=== PATIENT | female | born 1980 | race African-American/Black ===

== ENCOUNTER 2017-03-16 03:27 | Emergency (ER) | payer MEDICARE, MEDICAID ==
[~2017-03-16] VITALS: Ht 162.6 cm; Wt 100.0 kg
[~2017-03-16 03:27] MED LIST: ACET-2178; ASPI-785; BENA10TA3; CLOP75TA16; GABA-290; IBUP-779; INSASP; LOPRESSOR; LORA10CA; METF1000; NASOI; SIMV40TA2
[2017-03-16] MEDS ORDERED: KETOROLAC 60MG/2ML VIAL IM STA (03:47)
[2017-03-16 04:29] LABS: EOSINOPHILS % 1.1 % (0.0-5.0); HEMATOCRIT. 38.1 % (36.0-48.0); HEMOGLOBIN. 12.7 g/dL (12.0-16.0); LYMPHOCYTES % 21.2 % (20.0-50.0); MEAN CORPUSCULAR HEMOGLOBIN 27.4 pg (28.0-32.0); MEAN CORPUSCULAR VOLUME 82.2 fL (81.0-99.0); MEAN PLATELET VOLUME 9.2 fl (7.4-10.4); MONOCYTES % 6.3 % (2.0-8.0); NEUTROPHILS % 70.4 % (40.0-76.0); PLATELET 228 x1000/uL (130-400); RED BLOOD CELL COUNT 4.64 mill/uL (4.2-5.4); RED CELL DISTRIBUTION WIDTH 13.8 % (11.6-14.6)
[2017-03-16 04:29] LABS: CLARITY URINE CLOUDY (CLEAR); COLOR URINE YELLOW (YELLOW); GLUCOSE URINE 3+ (NEGATIVE); KETONES URINE NEGATIVE (NEGATIVE); LEUKOCYTE ESTERASE URINE 3+ (NEGATIVE); NITRITE URINE NEGATIVE (NEGATIVE); OCCULT BLOOD URINE 2+ (NEGATIVE); PH URINE 5.5 (4.5-8.0); PROTEIN URINE 3+ (NEGATIVE); SPECIFIC GRAVITY URINE 1.014 (1.005-1.030); UROBILINOGEN URINE 0.2 E.U./dL (0.2-1.0)
[2017-03-16 04:40] LABS: CARBON DIOXIDE 26 mEq/L (21-32); CHLORIDE 105 mEq/L (98-107)
[2017-03-16] MEDS ORDERED: BENAZEPRIL 20MG TABLET PO SCH (04:45)
[2017-03-16] MEDS ORDERED: SODIUM CHLORIDE 0.9% 1,000 ML IV ONE (05:23)
[2017-03-16] MEDS ORDERED: LORAZEPAM 1MG TABLET PO ONE (05:45)
[2017-03-16 05:48] LABS: ETHANOL BLOOD < 10 mg/dL
[2017-03-16] MEDS: BENAZEPRIL 20MG TABLET PO SCH ×2 (06:30→17:50)
[2017-03-16] MEDS: NITROFURANTOIN 100MG M/M CAPSULE PO SCH ×2 (07:06→22:09)
[2017-03-16 08:32] LABS: *AMPHETAMINES SCREEN URINE NEGATIVE (NEGATIVE); *BARBITURATES SCREEN URINE NEGATIVE (NEGATIVE); *BENZODIAZEPINES SCREEN URINE NEGATIVE (NEGATIVE); CANNABINOID URINE SCREEN NEGATIVE (NEGATIVE); METHADONE URINE SCREEN NEGATIVE (NEGATIVE); OPIATES URINE SCREEN NEGATIVE (NEGATIVE); PHENCYCLIDINE URINE SCREEN NEGATIVE (NEGATIVE)
[2017-03-16 08:45] LABS: *COCAINE SCREEN URINE PRESUMTIVE POSITIVE (NEGATIVE)
[2017-03-16] MEDS ORDERED: RISPERIDONE 1MG TABLET PO SCH (14:45)
[2017-03-16] MEDS ORDERED: METFORMIN HCL 500MG TABLET PO ONE (16:15)
[2017-03-17 02:23] VITALS: BP 140/79
== END 2017-03-17 02:45 ==
LOC: ER 03:43
DX: F14.10 Cocaine abuse, uncomplicated (principal); N39.0 Urinary tract infection, site not specified; R44.0 Auditory hallucinations; I25.2 Old myocardial infarction; I13.0 Hypertensive heart and chronic kidney disease with heart failure and stage 1 through stage 4 chronic kidney disease, or unspecified chronic kidney disease; E11.22 Type 2 diabetes mellitus with diabetic chronic kidney disease; N18.9 Chronic kidney disease, unspecified; I50.30 Unspecified diastolic (congestive) heart failure; Z88.6 Allergy status to analgesic agent; Z88.2 Allergy status to sulfonamides; Z79.82 Long term (current) use of aspirin; Z79.4 Long term (current) use of insulin; Z59.0 Homelessness
CPT/HCPCS: 36415; 80053; 80305; 80307; 80329; 81001; 81025; 85025; 96372; 99285; G0482; J1885; J7030

== ENCOUNTER 2019-12-09 14:43 | Inpatient (IN) | payer MEDICARE, MEDICAID ==
[~2019-12-09] VITALS: Ht 162.6 cm; Wt 88.0 kg
[~2019-12-09 14:43] MED LIST changes: -ACET-2178; -BENA10TA3; +BENA10TA74; -CLOP75TA16; +CLOP75TA4; +TOPUD
[2019-12-09 15:23] LABS: BASOPHILS % 0.8 % (0.0-2.0); EOSINOPHILS % 2.4 % (0.0-5.0); HEMATOCRIT. 33.4 % (36.0-48.0); HEMOGLOBIN. 11.4 g/dL (12.0-16.0); LYMPHOCYTES % 23.7 % (20.0-50.0); MEAN CORPUSCULAR HEMOGLOBIN 30.7 pg (28.0-32.0); MEAN CORPUSCULAR VOLUME 89.7 fL (81.0-99.0); MEAN PLATELET VOLUME 9.2 fl (7.4-10.4); MONOCYTES % 4.6 % (2.0-8.0); NEUTROPHILS % 68.5 % (40.0-76.0); PLATELET 190 x1000/uL (130-400); RED BLOOD CELL COUNT 3.72 mill/uL (4.2-5.4); RED CELL DISTRIBUTION WIDTH 14.9 % (11.6-14.6)
[2019-12-09 15:27] LABS: CHLORIDE 108 mEq/L (98-107)
[2019-12-09 15:33] LABS: BG BASE EXCESS -7.4 mmol/L (-2.0-2.0); BG CARBOXYHEMOGLOBIN 2.7 % (0.5-1.5); BG DEOXYHEMOGLOBIN 27.7 % (0.0-5.0); BG FRACTION INSPIRED OXYGEN 21; BG HCO3 ACT 17.6 mmol/L (22.0-26.0); BG METHEMOGLOBIN 0.1 % (0.0-1.5); BG OXYGEN SATURATION 71.5 % (92.0-98.5); BG OXYHEMOGLOBIN 69.5 % (94.0-97.0); BG PH 7.333 (7.350-7.450); BG PO2 37.6 mmHg (75.0-100.0); BG SAMPLE SITE RIGHT RADIAL; BG TOTAL HEMOGLOBIN 11.4 g/dL (12.0-18.0); BG VENT MODE ROOM AIR
[2019-12-09 15:33] LABS: HCG SCREEN NEGATIVE; PARTIAL THROMBOPLASTIN TIME < 21.0 sec (23.4-31.0); PROTHROMBIN TIME 10.2 sec (9.6-11.0)
[2019-12-09] MEDS ORDERED: SODIUM BICARBONATE 8.4% 1 MEQ/ML 50ML SYR IV ONE (15:45)
[2019-12-10 01:15] VITALS: BP 168/89
[2019-12-10] MEDS ORDERED: DEXTROSE 50% WATER 50ML SYRINGE IV PRN (03:00)
[2019-12-10] MEDS ORDERED: LISI-186 PO (03:27)
[2019-12-10] MEDS ORDERED: AMI2 PO (03:27)
[2019-12-10] MEDS ORDERED: AMLO5TAB4 PO (03:27)
[2019-12-10] MEDS ORDERED: ATOR80TA PO (03:27)
[2019-12-10] MEDS ORDERED: CLOP75TA4 PO (03:27)
[2019-12-10] MEDS ORDERED: COR25 PO (03:27)
[2019-12-10] MEDS ORDERED: SERT25TA PO (03:27)
[2019-12-10] MEDS ORDERED: ISOS120T9 PO (03:27)
[2019-12-10] MEDS ORDERED: INSU100I28 SQ (03:27)
[2019-12-10] MEDS ORDERED: ASPI-1497 PO (03:27)
[2019-12-10 04:00] VITALS: BP 138/69
[2019-12-10] MEDS: BLOOD SUGAR DIAGNOSTIC STRIP TEST SCH ×4 (05:44→20:43)
[2019-12-10] MEDS: INSULIN LISPRO 100 UNITS/ML SUBCUT SCH ×4 (05:50→20:43)
[2019-12-10 06:02] LABS: CHLORIDE 110 mEq/L (98-107)
[2019-12-10 06:04] LABS: HEMATOCRIT 31.1 % (36.0-48.0); HEMOGLOBIN 10.4 g/dL (12.0-16.0); MEAN CORPUSCULAR HEMOGLOBIN 29.7 pg (28.0-32.0); MEAN CORPUSCULAR VOLUME 88.8 fL (81.0-99.0); PLATELET 180 x1000/uL (130-400); RED CELL DISTRIBUTION WIDTH 14.7 % (11.6-14.6)
[2019-12-10 06:10] LABS: LDL CHOLESTEROL 72 mg/dL (5-100)
[2019-12-10 06:11] LABS: HDL CHOLESTEROL 58 mg/dL (40-59)
[2019-12-10 06:54] LABS: FOLIC ACID (FOLATE) SERUM 7.9 ng/mL (>5.38)
[2019-12-10 08:00] VITALS: BP 167/71
[2019-12-10] MEDS: AMIODARONE HCL 200 MG TABLET PO SCH (08:54)
[2019-12-10] MEDS: ASPIRIN 81MG TABLET PO SCH (08:54)
[2019-12-10] MEDS: CARVEDILOL 12.5MG TABLET PO SCH ×2 (08:55→20:44)
[2019-12-10] MEDS: LISINOPRIL 5MG TABLET PO SCH (08:55)
[2019-12-10] MEDS: CLOPIDOGREL 75MG TABLET PO SCH (08:56)
[2019-12-10] MEDS: SERTRALINE HCL 25MG TABLET PO SCH (08:56)
[2019-12-10] MEDS: AMLODIPINE 5MG TABLET PO SCH (08:56)
[2019-12-10] MEDS: ISOSORBIDE MONONITRATE 60MG TABLET SR 24HR PO SCH (08:56)
[2019-12-10 12:00] VITALS: BP 145/87
[2019-12-10] MEDS ORDERED: HEPARIN 1000 UNITS/ML 10ML ONE (15:56)
[2019-12-10] MEDS ORDERED: LIDOCAINE HCL 1% 20ML VIAL (Pyxis) INJ ONE (15:56)
[2019-12-10] MEDS ORDERED: SODIUM BICARBONATE 4% (2.4MEQ) 5ML VIAL IV ONE (15:56)
[2019-12-10 20:00] VITALS: BP 126/58
[2019-12-10 22:26] VITALS: BP 131/74
[2019-12-10] MEDS: HYDROCODONE/ACETAMINOPHEN 5/325MG TABLET PO PRN (22:54)
[2019-12-11] VITALS: BP 129/65
[2019-12-11] MEDS: ATORVASTATIN CALCIUM 40MG TABLET PO SCH ×2 (00:28→20:46)
[2019-12-11 04:00] VITALS: BP 143/86
[2019-12-11] MEDS: BLOOD SUGAR DIAGNOSTIC STRIP TEST SCH ×4 (05:34→20:46)
[2019-12-11] MEDS: INSULIN LISPRO 100 UNITS/ML SUBCUT SCH ×4 (05:51→20:46)
[2019-12-11 08:00] VITALS: BP 123/76
[2019-12-11] MEDS: ASPIRIN 81MG TABLET PO SCH (08:18)
[2019-12-11] MEDS: HYDROCODONE/ACETAMINOPHEN 5/325MG TABLET PO PRN ×2 (08:18→18:44)
[2019-12-11 08:41] LABS: BASOPHILS % 0.6 % (0.0-2.0); EOSINOPHILS % 2.8 % (0.0-5.0); HEMATOCRIT. 34.9 % (36.0-48.0); HEMOGLOBIN. 11.8 g/dL (12.0-16.0); LYMPHOCYTES % 23.5 % (20.0-50.0); MEAN CORPUSCULAR VOLUME 88.8 fL (81.0-99.0); MEAN PLATELET VOLUME 9.5 fl (7.4-10.4); NEUTROPHILS % 68.1 % (40.0-76.0); PLATELET 199 x1000/uL (130-400); RED BLOOD CELL COUNT 3.93 mill/uL (4.2-5.4); RED CELL DISTRIBUTION WIDTH 14.7 % (11.6-14.6)
[2019-12-11] MEDS: AMIODARONE HCL 200 MG TABLET PO SCH (09:00)
[2019-12-11] MEDS: ISOSORBIDE MONONITRATE 60MG TABLET SR 24HR PO SCH (09:00)
[2019-12-11] MEDS: LISINOPRIL 5MG TABLET PO SCH (09:00)
[2019-12-11] MEDS: CLOPIDOGREL 75MG TABLET PO SCH (09:00)
[2019-12-11] MEDS: SERTRALINE HCL 25MG TABLET PO SCH (09:00)
[2019-12-11] MEDS: AMLODIPINE 5MG TABLET PO SCH (09:00)
[2019-12-11] MEDS: CARVEDILOL 12.5MG TABLET PO SCH ×2 (09:00→20:45)
[2019-12-11 09:50] LABS: PHOSPHORUS 3.6 mg/dL (2.5-4.9)
[2019-12-11 12:00] VITALS: BP 126/70
[2019-12-11 12:43] LABS: HEPATITIS B SURFACE AB 443.5 mIU/mL
[2019-12-11 12:54] LABS: HEPATITIS B SURFACE ANTIGEN NEGATIVE
[2019-12-11 16:00] VITALS: BP 133/67
[2019-12-11 20:00] VITALS: BP 120/71
[2019-12-12] VITALS: BP 162/57
[2019-12-12 04:00] VITALS: BP 129/72
[2019-12-12] MEDS: INSULIN LISPRO 100 UNITS/ML SUBCUT SCH ×4 (06:40→21:00)
[2019-12-12] MEDS: BLOOD SUGAR DIAGNOSTIC STRIP TEST SCH ×4 (06:40→21:25)
[2019-12-12 08:40] LABS: BASOPHILS % 0.7 % (0.0-2.0); EOSINOPHILS % 6.9 % (0.0-5.0); HEMATOCRIT. 35.8 % (36.0-48.0); HEMOGLOBIN. 12.1 g/dL (12.0-16.0); LYMPHOCYTES % 29.1 % (20.0-50.0); MEAN CORPUSCULAR HEMOGLOBIN 29.7 pg (28.0-32.0); MEAN CORPUSCULAR VOLUME 88.2 fL (81.0-99.0); MEAN PLATELET VOLUME 9.4 fl (7.4-10.4); MONOCYTES % 7.1 % (2.0-8.0); NEUTROPHILS % 56.2 % (40.0-76.0); PLATELET 186 x1000/uL (130-400); RED BLOOD CELL COUNT 4.06 mill/uL (4.2-5.4); RED CELL DISTRIBUTION WIDTH 14.6 % (11.6-14.6)
[2019-12-12] MEDS: CARVEDILOL 12.5MG TABLET PO SCH ×2 (09:00→21:00)
[2019-12-12] MEDS: CLOPIDOGREL 75MG TABLET PO SCH (09:00)
[2019-12-12] MEDS: LISINOPRIL 5MG TABLET PO SCH (09:00)
[2019-12-12] MEDS: AMLODIPINE 5MG TABLET PO SCH (09:00)
[2019-12-12] MEDS: ISOSORBIDE MONONITRATE 60MG TABLET SR 24HR PO SCH (09:24)
[2019-12-12] MEDS: SERTRALINE HCL 25MG TABLET PO SCH (09:25)
[2019-12-12] MEDS: AMIODARONE HCL 200 MG TABLET PO SCH (09:26)
[2019-12-12 12:00] VITALS: BP 120/68
[2019-12-12 13:50] LABS: PHOSPHORUS 4.2 mg/dL (2.5-4.9)
[2019-12-12 16:00] VITALS: BP 120/69
[2019-12-12 20:00] VITALS: BP 127/63
[2019-12-12] MEDS: ATORVASTATIN CALCIUM 40MG TABLET PO SCH (21:41)
[2019-12-13] VITALS (17 sets, daily range): BP systolic 101–177; BP diastolic 59–101
[2019-12-13 06:27] LABS: BASOPHILS % 0.9 % (0.0-2.0); EOSINOPHILS % 6.5 % (0.0-5.0); HEMATOCRIT. 36.6 % (36.0-48.0); HEMOGLOBIN. 12.3 g/dL (12.0-16.0); LYMPHOCYTES % 27.8 % (20.0-50.0); MEAN CORPUSCULAR HEMOGLOBIN 29.6 pg (28.0-32.0); MEAN PLATELET VOLUME 9.6 fl (7.4-10.4); NEUTROPHILS % 57.8 % (40.0-76.0); PLATELET 200 x1000/uL (130-400); RED BLOOD CELL COUNT 4.16 mill/uL (4.2-5.4); RED CELL DISTRIBUTION WIDTH 14.4 % (11.6-14.6)
[2019-12-13 06:28] LABS: PROTHROMBIN TIME 10.9 sec (9.6-11.0)
[2019-12-13] MEDS: BLOOD SUGAR DIAGNOSTIC STRIP TEST SCH ×4 (07:10→21:09)
[2019-12-13 07:13] LABS: PHOSPHORUS 2.5 mg/dL (2.5-4.9)
[2019-12-13] MEDS ORDERED: HEPARIN 1000 UNITS/ML 10ML ONE (07:23)
[2019-12-13] MEDS ORDERED: SODIUM BICARBONATE 4% (2.4MEQ) 5ML VIAL IV ONE (07:23)
[2019-12-13] MEDS ORDERED: LIDOCAINE HCL 1% 20ML VIAL (Pyxis) INJ ONE (07:24)
[2019-12-13] MEDS: INSULIN LISPRO 100 UNITS/ML SUBCUT SCH ×4 (07:40→21:16)
[2019-12-13] MEDS ORDERED: CEFAZOLIN 1000MG PREMIX 50 ML IV ONE (07:41)
[2019-12-13] MEDS ORDERED: FENTANYL CITRATE/PF 50MCG/ML 2ML VIAL ONE (07:41)
[2019-12-13] MEDS ORDERED: FENTANYL CITRATE/PF 50MCG/ML 2ML VIAL IV ONE (08:45)
[2019-12-13] MEDS: AMLODIPINE 5MG TABLET PO SCH (09:00)
[2019-12-13] MEDS ORDERED: FENTANYL CITRATE/PF 50MCG/ML 2ML VIAL IV SCH (09:30)
[2019-12-13] MEDS: CLOPIDOGREL 75MG TABLET PO SCH (10:58)
[2019-12-13] MEDS: SERTRALINE HCL 25MG TABLET PO SCH (10:58)
[2019-12-13] MEDS: LISINOPRIL 20MG TABLET PO SCH (10:58)
[2019-12-13] MEDS: ISOSORBIDE MONONITRATE 60MG TABLET SR 24HR PO SCH (10:58)
[2019-12-13] MEDS: AMIODARONE HCL 200 MG TABLET PO SCH (10:58)
[2019-12-13] MEDS: ASPIRIN 81MG TABLET PO SCH (10:59)
[2019-12-13] MEDS: CARVEDILOL 12.5MG TABLET PO SCH ×2 (10:59→21:00)
[2019-12-13] MEDS ORDERED: CEFAZOLIN 1000MG PREMIX 50 ML IV SCH (11:00)
[2019-12-13] MEDS: HYDROCODONE/ACETAMINOPHEN 5/325MG TABLET PO PRN ×2 (14:45→18:38)
[2019-12-13] MEDS: ATORVASTATIN CALCIUM 40MG TABLET PO SCH (21:15)
[2019-12-14] MEDS: HYDROCODONE/ACETAMINOPHEN 5/325MG TABLET PO PRN (00:08)
[2019-12-14 00:45] VITALS: BP 111/63
[2019-12-14 04:00] VITALS: BP 104/55
[2019-12-14] MEDS: BLOOD SUGAR DIAGNOSTIC STRIP TEST SCH ×2 (07:10→12:10)
[2019-12-14] MEDS: INSULIN LISPRO 100 UNITS/ML SUBCUT SCH ×2 (07:40→12:40)
[2019-12-14 08:00] VITALS: BP 136/80
[2019-12-14] MEDS: ASPIRIN 81MG TABLET PO SCH (08:50)
[2019-12-14] MEDS: ISOSORBIDE MONONITRATE 60MG TABLET SR 24HR PO SCH (08:50)
[2019-12-14] MEDS: CLOPIDOGREL 75MG TABLET PO SCH (08:50)
[2019-12-14] MEDS: AMIODARONE HCL 200 MG TABLET PO SCH (08:50)
[2019-12-14] MEDS: CARVEDILOL 12.5MG TABLET PO SCH (08:52)
[2019-12-14] MEDS: AMLODIPINE 5MG TABLET PO SCH (09:00)
[2019-12-14] MEDS: LISINOPRIL 20MG TABLET PO SCH (09:00)
[2019-12-14] MEDS: SERTRALINE HCL 25MG TABLET PO SCH (09:16)
[2019-12-14] MEDS ORDERED: LISI-604 PO (11:11)
[2019-12-14 12:00] VITALS: BP 97/57
[2019-12-14 15:11] VITALS: BP 100/84
== END 2019-12-14 16:00 | disposition home or self-care (01) | DRG 673 ==
LOC: ER 14:43 → MICUSO 15:52 → EDBEDREQ 22:27 → 8WST 23:26
PROVIDERS: ADMIT Internal Medicine; ATTEND Internal Medicine
PROC: 5A1D70Z Performance of Urinary Filtration, Intermittent, Less than 6 Hours Per Day (ICD-10-PCS; 2019-12-10)
PROC: 5A1D70Z Performance of Urinary Filtration, Intermittent, Less than 6 Hours Per Day (ICD-10-PCS; 2019-12-11)
PROC: 0JH63XZ Insertion of Tunneled Vascular Access Device into Chest Subcutaneous Tissue and Fascia, Percutaneous Approach (ICD-10-PCS; principal; 2019-12-13)
PROC: 02PA33Z Removal of Infusion Device from Heart, Percutaneous Approach (ICD-10-PCS; 2019-12-13)
PROC: 02HV33Z Insertion of Infusion Device into Superior Vena Cava, Percutaneous Approach (ICD-10-PCS; 2019-12-13)
PROC: B5181ZA Fluoroscopy of Superior Vena Cava using Low Osmolar Contrast, Guidance (ICD-10-PCS; 2019-12-13)
PROC: B548ZZA Ultrasonography of Superior Vena Cava, Guidance (ICD-10-PCS; 2019-12-13)
PROC: 5A1D70Z Performance of Urinary Filtration, Intermittent, Less than 6 Hours Per Day (ICD-10-PCS; 2019-12-14)
DX: N17.9 Acute kidney failure, unspecified (principal); I50.23 Acute on chronic systolic (congestive) heart failure; J96.01 Acute respiratory failure with hypoxia; I13.2 Hypertensive heart and chronic kidney disease with heart failure and with stage 5 chronic kidney disease, or end stage renal disease; N18.5 Chronic kidney disease, stage 5; E78.5 Hyperlipidemia, unspecified; I25.10 Atherosclerotic heart disease of native coronary artery without angina pectoris; I25.5 Ischemic cardiomyopathy; F14.11 Cocaine abuse, in remission; E10.22 Type 1 diabetes mellitus with diabetic chronic kidney disease; D64.9 Anemia, unspecified; Z20.828 Contact with and (suspected) exposure to other viral communicable diseases; Z79.02 Long term (current) use of antithrombotics/antiplatelets; Z79.4 Long term (current) use of insulin; Z79.82 Long term (current) use of aspirin; Z82.49 Family history of ischemic heart disease and other diseases of the circulatory system; Z83.3 Family history of diabetes mellitus; Z86.73 Personal history of transient ischemic attack (TIA), and cerebral infarction without residual deficits; Z95.1 Presence of aortocoronary bypass graft; Z88.5 Allergy status to narcotic agent; Z88.2 Allergy status to sulfonamides; I25.2 Old myocardial infarction; Z90.89 Acquired absence of other organs; Z79.899 Other long term (current) drug therapy; I73.9 Peripheral vascular disease, unspecified
CPT/HCPCS: 36415; 36558; 36589; 36600; 71045; 76937; 77001; 80048; 80053; 80061; 82375; 82746; 82805; 82962; 83036; 83735; 84100; 84484; 84703; 85025; 85027; 86705; 86706; 86803; 87340; 87635; 93005; 93923; 99152; 99153; 99285; C1750; C1752; C1769; J0690; J1642; J1644; J1815; J3010; J3490; G0500

== ENCOUNTER 2021-05-13 12:18 | Emergency (ER) | payer MEDICARE, MEDICAID ==
[~2021-05-13] VITALS: Ht 160 cm; Wt 71.0 kg
[~2021-05-13 12:18] MED LIST changes: +ASPI-1497 PO; -ASPI-785; +ATOR80TA PO; -BENA10TA74; +CLOP-31 PO; -CLOP75TA4; -GABA-290; -IBUP-779; -INSASP; -LOPRESSOR; -LORA10CA; -METF1000; -NASOI; +NITR0.4T49 SL; +SACU1TAB7 MT; -SIMV40TA2; -TOPUD
[2021-05-13 13:56] LABS: BASOPHILS % 0.5 % (0.0-2.0); EOSINOPHILS % 2.6 % (0.0-5.0); HEMATOCRIT. 35.1 % (36.0-48.0); HEMOGLOBIN. 11.8 g/dL (12.0-16.0); MEAN CORPUSCULAR HEMOGLOBIN 28.6 pg (28.0-32.0); MEAN CORPUSCULAR VOLUME 85.1 fL (81.0-99.0); MEAN PLATELET VOLUME 9.5 fl (7.4-10.4); NEUTROPHILS % 76.9 % (40.0-76.0); PLATELET 199 x1000/uL (130-400); RED BLOOD CELL COUNT 4.12 mill/uL (4.2-5.4); RED CELL DISTRIBUTION WIDTH 14.7 % (11.6-14.6)
[2021-05-13 14:10] LABS: CHLORIDE 99 mEq/L (98-107)
[2021-05-13 15:40] VITALS: BP 108/61
[2021-05-13] MEDS ORDERED: SODIUM CHLORIDE 0.9% 1,000 ML IV ONE (16:00)
== END 2021-05-13 15:56 | disposition home or self-care (01) ==
LOC: ER 13:38
DX: B34.9 Viral infection, unspecified (principal); M79.18 Myalgia, other site; I50.9 Heart failure, unspecified; Z98.890 Other specified postprocedural states; Z88.5 Allergy status to narcotic agent; Z79.899 Other long term (current) drug therapy; Z20.822 Contact with and (suspected) exposure to COVID-19
CPT/HCPCS: 36415; 71045; 80053; 83880; 85025; 87426; 93005; 99285

== ENCOUNTER 2021-07-20 15:37 | Inpatient (IN) | payer MEDICARE, MEDICAID ==
[~2021-07-20] VITALS: Ht 152.4 cm; Wt 72.6 kg
[2021-07-20] MEDS ORDERED: ONDANSETRON HCL 4MG/2ML INJ IV STA (18:07)
[2021-07-20] MEDS ORDERED: MORPHINE SULFATE 4 MG/ML CPJ (NOT FOR IM USE) IV STA (18:07)
[2021-07-20] MEDS ORDERED: GUAIFENESIN 200MG/10ML SUGAR FREE UDC PO PRN (20:15)
[2021-07-20] MEDS ORDERED: ACETAMINOPHEN 325MG TABLET PO PRN (20:15)
[2021-07-20] MEDS ORDERED: ONDANSETRON HCL 4MG/2ML INJ IV PRN (20:15)
[2021-07-20] MEDS ORDERED: CLONIDINE 0.1MG TABLET PO PRN (20:15)
[2021-07-20] MEDS ORDERED: HYDRALAZINE 20MG/ML VIAL IV PRN (20:15)
[2021-07-20] MEDS ORDERED: AMLODIPINE 10MG TABLET PO SCH (20:15)
[2021-07-20] MEDS ORDERED: IPRATROPIUM/ALBUTEROL 0.5-3(2.5)MG/3ML NEB HHN PRN (20:15)
[2021-07-20] MEDS ORDERED: METOPROLOL TARTRATE 50MG TABLET PO SCH (20:15)
[2021-07-20] MEDS ORDERED: DOCUSATE SODIUM 100MG CAPSULE PO PRN (20:15)
[2021-07-20] MEDS: HYDRALAZINE HCL 50MG TABLET PO SCH (22:00)
[2021-07-21 01:43] LABS: HEMATOCRIT. 28.1 % (36.0-48.0); HEMOGLOBIN. 9.4 g/dL (12.0-16.0); MEAN CORPUSCULAR HEMOGLOBIN 31.6 pg (28.0-32.0); MEAN CORPUSCULAR VOLUME 94.1 fL (81.0-99.0); MEAN PLATELET VOLUME 8.7 fl (7.4-10.4); PLATELET 193 x1000/uL (130-400); RED BLOOD CELL COUNT 2.99 mill/uL (4.2-5.4)
[2021-07-21 01:49] LABS: CHLORIDE 109 mEq/L (98-107)
[2021-07-21 01:53] LABS: ETHANOL BLOOD < 10 mg/dL
[2021-07-21 02:09] LABS: HEPATITIS B SURFACE AB 270.3 mIU/mL
[2021-07-21 02:20] LABS: HEPATITIS B SURFACE ANTIGEN NEGATIVE
[2021-07-21 02:52] VITALS: BP 155/84
[2021-07-21 03:51] LABS: PLATELET ESTIMATE NORMAL
[2021-07-21] MEDS ORDERED: GLIP5TAB12 PO (03:59)
[2021-07-21] MEDS ORDERED: COR3 MT (03:59)
[2021-07-21 04:00] VITALS: BP 164/92
[2021-07-21] MEDS ORDERED: RANO500T3 MT (04:00)
[2021-07-21] MEDS: HYDRALAZINE HCL 50MG TABLET PO SCH (05:22)
[2021-07-22] MEDS ORDERED: ISOS5TAB4 MT (05:36)
== END 2021-07-21 08:40 | disposition left against medical advice (07) | DRG 698 ==
LOC: ER 15:37 → 6WST 19:23 → ENRESERV 21:39
PROVIDERS: ADMIT Internal Medicine; ATTEND Internal Medicine
PROC: 5A1D70Z Performance of Urinary Filtration, Intermittent, Less than 6 Hours Per Day (ICD-10-PCS; principal; 2021-07-21)
DX: T82.41XA Breakdown (mechanical) of vascular dialysis catheter, initial encounter (principal); N18.6 End stage renal disease; I13.2 Hypertensive heart and chronic kidney disease with heart failure and with stage 5 chronic kidney disease, or end stage renal disease; I25.10 Atherosclerotic heart disease of native coronary artery without angina pectoris; Y83.8 Other surgical procedures as the cause of abnormal reaction of the patient, or of later complication, without mention of misadventure at the time of the procedure; E78.5 Hyperlipidemia, unspecified; E11.22 Type 2 diabetes mellitus with diabetic chronic kidney disease; D64.9 Anemia, unspecified; I50.9 Heart failure, unspecified; Z53.29 Procedure and treatment not carried out because of patient's decision for other reasons; Z99.2 Dependence on renal dialysis; Z88.4 Allergy status to anesthetic agent; Z88.8 Allergy status to other drugs, medicaments and biological substances; Z79.899 Other long term (current) drug therapy; Z95.1 Presence of aortocoronary bypass graft; Z87.891 Personal history of nicotine dependence; Y92.89 Other specified places as the place of occurrence of the external cause; Z79.02 Long term (current) use of antithrombotics/antiplatelets; Z79.84 Long term (current) use of oral hypoglycemic drugs; Z91.15 Patient's noncompliance with renal dialysis; F10.21 Alcohol dependence, in remission
CPT/HCPCS: 36415; 71045; 80053; 80320; 83880; 84484; 85025; 86706; 86850; 86900; 87340; 93005; 99285; J2270; J2405; G0480

== ENCOUNTER 2021-07-21 09:22 | Inpatient (IN) | payer MEDICARE, MEDICAID ==
[~2021-07-21] VITALS: Ht 165.1 cm; Wt 73.9 kg
[~2021-07-21 09:22] MED LIST changes: +COR3 MT; +GLIP5TAB12 PO; +RANO500T3 MT
[2021-07-21] MEDS ORDERED: VANCOMYCIN 1GM PMX (XELLIA) 200 ML IV ONE (13:30)
[2021-07-21] MEDS ORDERED: VANCOMYCIN 1G PREMIX 200 ML IV SCH (13:30)
[2021-07-21] MEDS ORDERED: CEFTRIAXONE 1 G PREMIX 50 ML IV ONE (13:30)
[2021-07-21 14:57] LABS: EOSINOPHILS % 4.9 % (0.0-5.0); HEMATOCRIT. 29.2 % (36.0-48.0); HEMOGLOBIN. 9.9 g/dL (12.0-16.0); LYMPHOCYTES % 26.1 % (20.0-50.0); MEAN CORPUSCULAR HEMOGLOBIN 31.2 pg (28.0-32.0); MEAN PLATELET VOLUME 9.1 fl (7.4-10.4); PLATELET 197 x1000/uL (130-400); RED BLOOD CELL COUNT 3.17 mill/uL (4.2-5.4); RED CELL DISTRIBUTION WIDTH 14.8 % (11.6-14.6)
[2021-07-21 15:03] LABS: CHLORIDE 107 mEq/L (98-107)
[2021-07-21] MEDS ORDERED: HYDROCODONE/ACETAMINOPHEN 10/325MG TABLET PO ONE (15:15)
[2021-07-21 15:23] LABS: HCG SCREEN NEGATIVE
[2021-07-22] MEDS ORDERED: IPRATROPIUM/ALBUTEROL 0.5-3(2.5)MG/3ML NEB HHN PRN (00:30)
[2021-07-22] MEDS ORDERED: HYDROCODONE/ACETAMINOPHEN 5/325MG TABLET PO PRN (00:30)
[2021-07-22] MEDS ORDERED: NALOXONE HCL 0.4 MG/ML 1ML VIAL IV PRN (00:30)
[2021-07-22] MEDS ORDERED: ACETAMINOPHEN 325MG TABLET PO PRN ×2 (00:30→08:15)
[2021-07-22] MEDS ORDERED: DOCUSATE SODIUM 100MG CAPSULE PO PRN ×2 (00:30→08:15)
[2021-07-22] MEDS ORDERED: ONDANSETRON HCL 4MG/2ML INJ IV PRN ×2 (00:30→08:15)
[2021-07-22] MEDS ORDERED: GUAIFENESIN 200MG/10ML SUGAR FREE UDC PO PRN ×2 (00:30→08:15)
[2021-07-22 05:17] VITALS: BP 178/96
[2021-07-22] MEDS ORDERED: ISOS5TAB4 MT (05:36)
[2021-07-22 08:00] VITALS: BP 167/95
[2021-07-22] MEDS ORDERED: MAGNESIUM/ALUMINUM HYDROXIDE/SIMETHICONE 30ML UDC PO PRN (08:15)
[2021-07-22] MEDS ORDERED: NA PHOS,M-B/NA PHOS,DI-BA ENEMA 118ML PR PRN (08:15)
[2021-07-22] MEDS ORDERED: IPRATROPIUM/ALBUTEROL 0.5-3(2.5)MG/3ML NEB NEB PRN (08:15)
[2021-07-22] MEDS ORDERED: CLONIDINE 0.1MG TABLET PO PRN (08:15)
[2021-07-22] MEDS ORDERED: LORAZEPAM 2MG/ML CPJ IV PRN (08:15)
[2021-07-22] MEDS: MORPHINE SULFATE 2 MG/ML CPJ (NOT FOR IM USE) IV PRN ×2 (10:32→16:07)
[2021-07-22 12:00] VITALS: BP 165/83
[2021-07-22] MEDS ORDERED: VANCOMYCIN 500MG PREMIX 100 ML IV NR (12:00)
[2021-07-22] MEDS: NICOTINE 21MG PATCH TD SCH (14:24)
[2021-07-22] MEDS ORDERED: CEFTRIAXONE 1 G PREMIX 50 ML IV SCH (15:00)
[2021-07-22 16:00] VITALS: BP 157/100
[2021-07-22] MEDS: CEFTRIAXONE 1,000 MG in DEXTROSE 5% WATER 50 ML IV SCH (16:10)
[2021-07-22 20:00] VITALS: BP 158/88
[2021-07-22] MEDS ORDERED: VANCOMYCIN 1G PREMIX 200 ML IV SCH (20:15)
[2021-07-23] MEDS: MORPHINE SULFATE 2 MG/ML CPJ (NOT FOR IM USE) IV PRN ×4 (03:02→21:24)
[2021-07-23 04:00] VITALS: BP 157/88
[2021-07-23] MEDS ORDERED: DEXTROSE 50% WATER 50ML SYRINGE IV PRN (05:00)
[2021-07-23] MEDS: BLOOD SUGAR DIAGNOSTIC STRIP TEST SCH ×4 (05:57→21:12)
[2021-07-23] MEDS: INSULIN LISPRO 100 UNITS/ML SUBCUT SCH ×4 (05:57→21:43)
[2021-07-23 08:00] VITALS: BP 169/84
[2021-07-23] MEDS: NICOTINE 21MG PATCH TD SCH (09:00)
[2021-07-23 12:00] VITALS: BP 153/78
[2021-07-23] MEDS ORDERED: VANCOMYCIN 1,000 MG in DEXT 5% WATER 250 ML IV SCH (15:00)
[2021-07-23] MEDS: CEFTRIAXONE 1,000 MG in DEXTROSE 5% WATER 50 ML IV SCH (15:43)
[2021-07-23] MEDS: BACITRACIN 15GM TUBE TOP SCH (15:44)
[2021-07-23 16:00] VITALS: BP 160/80
[2021-07-23 20:00] VITALS: BP 165/86
[2021-07-23] MEDS: CLONIDINE 0.1MG TABLET PO PRN (21:14)
[2021-07-24 04:00] VITALS: BP 150/82
[2021-07-24] MEDS: DIPHENHYDRAMINE 50MG/ML VIAL IV PRN ×3 (06:11→21:44)
[2021-07-24] MEDS: INSULIN LISPRO 100 UNITS/ML SUBCUT SCH ×4 (07:12→22:03)
[2021-07-24] MEDS: BLOOD SUGAR DIAGNOSTIC STRIP TEST SCH ×4 (07:12→21:00)
[2021-07-24 08:00] VITALS: BP 161/79
[2021-07-24 09:17] LABS: HEMATOCRIT. 31.4 % (36.0-48.0); HEMOGLOBIN. 10.6 g/dL (12.0-16.0); LYMPHOCYTES % 31.5 % (20.0-50.0); MEAN CORPUSCULAR HEMOGLOBIN 31.1 pg (28.0-32.0); MEAN CORPUSCULAR VOLUME 92.5 fL (81.0-99.0); MEAN PLATELET VOLUME 9.4 fl (7.4-10.4); MONOCYTES % 8.8 % (2.0-8.0); NEUTROPHILS % 53.7 % (40.0-76.0); PLATELET 211 x1000/uL (130-400); RED BLOOD CELL COUNT 3.39 mill/uL (4.2-5.4); RED CELL DISTRIBUTION WIDTH 14.2 % (11.6-14.6)
[2021-07-24] MEDS: NICOTINE 21MG PATCH TD SCH (09:17)
[2021-07-24] MEDS: BACITRACIN 15GM TUBE TOP SCH (09:17)
[2021-07-24 09:34] LABS: CHLORIDE 107 mEq/L (98-107)
[2021-07-24 09:36] LABS: PARTIAL THROMBOPLASTIN TIME 27.4 sec (23.4-31.0); PROTHROMBIN TIME 10.4 sec (9.6-11.0)
[2021-07-24] MEDS ORDERED: HEPARIN 1000 UNITS/ML 10ML ONE (09:45)
[2021-07-24] MEDS ORDERED: LIDOCAINE HCL 1% 10 MG/ML 10ML VIAL ONE (09:45)
[2021-07-24] MEDS: MORPHINE SULFATE 2 MG/ML CPJ (NOT FOR IM USE) IV PRN ×2 (10:28→21:50)
[2021-07-24] MEDS: CLONIDINE 0.1MG TABLET PO PRN (10:28)
[2021-07-24 11:38] LABS: HEPATITIS B SURFACE AB 336.8 mIU/mL
[2021-07-24 11:49] LABS: HEPATITIS B SURFACE ANTIGEN NEGATIVE
[2021-07-24 12:00] VITALS: BP 144/77
[2021-07-24] MEDS ORDERED: CALCIUM GLUCONATE 1GM PREMIX 50 ML IV NR (12:30)
[2021-07-24] MEDS ORDERED: SODIUM POLYSTYRENE SULFONATE 15 G/60 ML BOT PO NR (13:00)
[2021-07-24] MEDS ORDERED: DEXTROSE 50% WATER 50ML SYRINGE IV NR (13:00)
[2021-07-24] MEDS ORDERED: SODIUM BICARBONATE 8.4% 1 MEQ/ML 50ML SYR IV NR (13:00)
[2021-07-24] MEDS ORDERED: INSULIN REGULAR (HUMULIN R) UD 100 UNITS/ML SYR IV NR (13:00)
[2021-07-24] MEDS ORDERED: VANCOMYCIN 750 MG in DEXT 5% WATER 250 ML IV SCH (14:00)
[2021-07-24 16:00] VITALS: BP 140/82
[2021-07-24 20:00] VITALS: BP 117/93
[2021-07-24] MEDS ORDERED: MORPHINE SULFATE 2 MG/ML CPJ (NOT FOR IM USE) IV ONE (21:36)
[2021-07-24] MEDS ORDERED: DIPHENHYDRAMINE 50MG/ML VIAL ONE (21:39)
[2021-07-24] MEDS: CEFTRIAXONE 1,000 MG in DEXTROSE 5% WATER 50 ML IV SCH (21:43)
[2021-07-24] MEDS ORDERED: INSULIN LISPRO 100 UNITS/ML SUBCUT ONE (22:00)
[2021-07-25] VITALS: BP 146/84
[2021-07-25 04:00] VITALS: BP 168/98
[2021-07-25] MEDS ORDERED: DIPHENHYDRAMINE 50MG/ML VIAL ONE (04:17)
[2021-07-25] MEDS: DIPHENHYDRAMINE 50MG/ML VIAL IV PRN ×2 (04:25→20:14)
[2021-07-25] MEDS ORDERED: BUPIVACAINE HCL/PF 0.5% (5MG/ML) 30ML ONE (06:26)
[2021-07-25] MEDS ORDERED: THROMBIN (BOVINE) 5000 UNITS/VIAL TOP ONE (06:27)
[2021-07-25] MEDS ORDERED: HEPARIN SODIUM 1,000 UNIT/1ML VIAL IV ONE (06:27)
[2021-07-25] MEDS ORDERED: BACITRACIN 15GM TUBE TOP ONE (06:27)
[2021-07-25] MEDS ORDERED: POLYMYXIN B SULFATE 500000 UNITS/VIAL ONE (06:28)
[2021-07-25] MEDS ORDERED: LIDOCAINE HCL 1% 10 MG/ML 10ML VIAL ONE (06:28)
[2021-07-25] MEDS: BLOOD SUGAR DIAGNOSTIC STRIP TEST SCH ×4 (06:54→21:00)
[2021-07-25] MEDS: INSULIN LISPRO 100 UNITS/ML SUBCUT SCH ×4 (06:54→20:27)
[2021-07-25] MEDS ORDERED: MORPHINE SULFATE 2 MG/ML CPJ (NOT FOR IM USE) IV ONE (07:59)
[2021-07-25 08:00] VITALS: BP 173/98
[2021-07-25] MEDS ORDERED: CLONIDINE 0.1MG TABLET ONE (08:01)
[2021-07-25] MEDS: MORPHINE SULFATE 2 MG/ML CPJ (NOT FOR IM USE) IV PRN ×3 (08:04→20:14)
[2021-07-25] MEDS: CLONIDINE 0.1MG TABLET PO PRN ×2 (08:05→15:31)
[2021-07-25] MEDS ORDERED: NICOTINE 21MG PATCH ONE (08:18)
[2021-07-25] MEDS: NICOTINE 21MG PATCH TD SCH (08:20)
[2021-07-25] MEDS: BACITRACIN 15GM TUBE TOP SCH (08:21)
[2021-07-25 12:00] VITALS: BP 155/60
[2021-07-25] MEDS ORDERED: PROPOFOL 10MG/ML 100ML 100 ML IV ONE (13:00)
[2021-07-25] MEDS ORDERED: PROPOFOL 200MG/20ML VIAL IV ONE (13:16)
[2021-07-25] MEDS ORDERED: MIDAZOLAM HCL 2 MG/2 ML VIAL ONE ×3 (13:16→13:54)
[2021-07-25] MEDS ORDERED: FENTANYL CITRATE/PF 50MCG/ML 2ML VIAL ONE ×3 (13:16→13:54)
[2021-07-25] MEDS ORDERED: ONDANSETRON HCL 4MG/2ML INJ ONE (13:18)
[2021-07-25] MEDS ORDERED: DEXAMETHASONE 4MG/ML 1ML VIAL ONE (13:18)
[2021-07-25] MEDS ORDERED: HYDROMORPHONE HCL/PF 2MG/ML CPJ IV PRN (14:00)
[2021-07-25] MEDS ORDERED: LABETALOL 5MG/ML SYR 20 MG/4 ML SYRINGE IV PRN (14:00)
[2021-07-25] MEDS ORDERED: ONDANSETRON HCL 4MG/2ML INJ IV PRN (14:00)
[2021-07-25] MEDS ORDERED: MEPERIDINE HCL/PF 25MG/ML CPJ IV PRN (14:00)
[2021-07-25] MEDS ORDERED: DIPHENHYDRAMINE 50MG/ML VIAL IV ONE (14:45)
[2021-07-25] MEDS: CEFTRIAXONE 1,000 MG in DEXTROSE 5% WATER 50 ML IV SCH (15:22)
[2021-07-25 16:00] VITALS: BP 169/99
[2021-07-25 20:00] VITALS: BP 159/93
[2021-07-25] MEDS: NITROGLYCERIN 0.4MG TABLET SL SL PRN ×2 (22:25→23:14)
[2021-07-25] MEDS: INSULIN LISPRO 100 UNITS/ML SUBCUT NR (22:26)
[2021-07-26] VITALS: BP 159/97
[2021-07-26 04:00] VITALS: BP 193/73
[2021-07-26] MEDS: DIPHENHYDRAMINE 50MG/ML VIAL IV PRN ×2 (05:32→13:56)
[2021-07-26] MEDS: CLONIDINE 0.1MG TABLET PO PRN ×2 (05:33→13:59)
[2021-07-26] MEDS: MORPHINE SULFATE 2 MG/ML CPJ (NOT FOR IM USE) IV PRN ×4 (05:34→20:43)
[2021-07-26] MEDS: BLOOD SUGAR DIAGNOSTIC STRIP TEST SCH ×4 (06:33→20:45)
[2021-07-26] MEDS: INSULIN LISPRO 100 UNITS/ML SUBCUT SCH ×4 (06:33→20:45)
[2021-07-26 06:41] VITALS: BP 184/84
[2021-07-26] MEDS: BACITRACIN 15GM TUBE TOP SCH (09:00)
[2021-07-26] MEDS: NICOTINE 21MG PATCH TD SCH (09:40)
[2021-07-26 13:31] LABS: BASOPHILS % 0.3 % (0.0-2.0); EOSINOPHILS % 1.1 % (0.0-5.0); HEMOGLOBIN. 10.3 g/dL (12.0-16.0); LYMPHOCYTES % 17.2 % (20.0-50.0); MEAN CORPUSCULAR VOLUME 90.6 fL (81.0-99.0); MEAN PLATELET VOLUME 9.6 fl (7.4-10.4); MONOCYTES % 8.7 % (2.0-8.0); NEUTROPHILS % 72.7 % (40.0-76.0); PLATELET 169 x1000/uL (130-400); RED BLOOD CELL COUNT 3.32 mill/uL (4.2-5.4); RED CELL DISTRIBUTION WIDTH 13.9 % (11.6-14.6)
[2021-07-26] MEDS ORDERED: CLOPIDOGREL 75MG TABLET PO SCH ×2 (14:00)
[2021-07-26] MEDS ORDERED: ASPIRIN 81MG EC TABLET PO SCH ×2 (14:00)
[2021-07-26] MEDS ORDERED: NON FORMULARY PATIENT HOME MED XX SCH (14:15)
[2021-07-26 15:11] VITALS: BP 129/74
[2021-07-26] MEDS: CEFTRIAXONE 1,000 MG in DEXTROSE 5% WATER 50 ML IV SCH (15:49)
[2021-07-26] MEDS: SACUBITRIL/VALSARTAN 49MG/51MG TABLET PO SCH (17:00)
[2021-07-26] MEDS ORDERED: VANCOMYCIN 750 MG in DEXT 5% WATER 250 ML IV SCH (18:00)
[2021-07-26 20:00] VITALS: BP 133/74
[2021-07-26] MEDS: ATORVASTATIN CALCIUM 20MG TABLET PO SCH (20:32)
[2021-07-26] MEDS: RANOLAZINE 500 MG TAB.SR.12H PO SCH (20:33)
[2021-07-26] MEDS: AMLODIPINE 5MG TABLET PO SCH (20:33)
[2021-07-26] MEDS: CARVEDILOL 3.125 MG TABLET PO SCH (20:44)
[2021-07-26] MEDS ORDERED: CARVEDILOL 3.125 MG TABLET PO SCH (21:00)
[2021-07-26] MEDS: INSULIN LISPRO 100 UNITS/ML SUBCUT NR (22:15)
[2021-07-26 22:23] VITALS: BP 133/74
[2021-07-27] VITALS (7 sets, daily range): BP systolic 126–153; BP diastolic 71–86
[2021-07-27] MEDS: MORPHINE SULFATE 2 MG/ML CPJ (NOT FOR IM USE) IV PRN ×2 (01:31→18:15)
[2021-07-27] MEDS: INSULIN LISPRO 100 UNITS/ML SUBCUT SCH ×4 (06:53→21:07)
[2021-07-27] MEDS: BLOOD SUGAR DIAGNOSTIC STRIP TEST SCH ×4 (06:53→21:08)
[2021-07-27 08:09] LABS: BASOPHILS % 0.8 % (0.0-2.0); EOSINOPHILS % 4.6 % (0.0-5.0); HEMATOCRIT. 27.2 % (36.0-48.0); HEMOGLOBIN. 9.4 g/dL (12.0-16.0); LYMPHOCYTES % 30.9 % (20.0-50.0); MEAN CORPUSCULAR HEMOGLOBIN 31.3 pg (28.0-32.0); MEAN CORPUSCULAR VOLUME 90.4 fL (81.0-99.0); MEAN PLATELET VOLUME 9.5 fl (7.4-10.4); MONOCYTES % 7.9 % (2.0-8.0); NEUTROPHILS % 55.8 % (40.0-76.0); PLATELET 159 x1000/uL (130-400); RED BLOOD CELL COUNT 3.01 mill/uL (4.2-5.4); RED CELL DISTRIBUTION WIDTH 14.2 % (11.6-14.6)
[2021-07-27] MEDS ORDERED: FENTANYL CITRATE/PF 50MCG/ML 2ML VIAL ONE ×2 (08:56→09:21)
[2021-07-27] MEDS ORDERED: PROPOFOL 200MG/20ML VIAL IV ONE (08:56)
[2021-07-27] MEDS ORDERED: MIDAZOLAM HCL 2 MG/2 ML VIAL ONE ×2 (08:56→09:21)
[2021-07-27] MEDS: AMLODIPINE 5MG TABLET PO SCH ×2 (09:00→21:00)
[2021-07-27] MEDS: CARVEDILOL 3.125 MG TABLET PO SCH ×2 (09:00→21:06)
[2021-07-27] MEDS: RANOLAZINE 500 MG TAB.SR.12H PO SCH ×2 (09:00→21:06)
[2021-07-27] MEDS: SACUBITRIL/VALSARTAN 49MG/51MG TABLET PO SCH ×2 (09:00→17:00)
[2021-07-27] MEDS ORDERED: ONDANSETRON HCL 4MG/2ML INJ ONE (09:04)
[2021-07-27] MEDS ORDERED: DEXAMETHASONE 4MG/ML 1ML VIAL ONE (09:04)
[2021-07-27] MEDS ORDERED: MEPERIDINE HCL/PF 25MG/ML CPJ IV PRN (10:00)
[2021-07-27] MEDS ORDERED: HYDROMORPHONE HCL/PF 2MG/ML CPJ IV PRN (10:00)
[2021-07-27] MEDS ORDERED: LABETALOL 5MG/ML SYR 20 MG/4 ML SYRINGE IV PRN (10:00)
[2021-07-27] MEDS ORDERED: ONDANSETRON HCL 4MG/2ML INJ IV PRN (10:00)
[2021-07-27] MEDS: DIPHENHYDRAMINE 50MG/ML VIAL IV PRN ×2 (16:04→23:32)
[2021-07-27] MEDS: NICOTINE 21MG PATCH TD SCH (16:13)
[2021-07-27] MEDS: CEFTRIAXONE 1,000 MG in DEXTROSE 5% WATER 50 ML IV SCH (18:15)
[2021-07-27] MEDS: BACITRACIN 15GM TUBE TOP SCH (20:24)
[2021-07-27] MEDS: ATORVASTATIN CALCIUM 20MG TABLET PO SCH (21:06)
[2021-07-28] VITALS: BP 140/76
[2021-07-28] MEDS: MORPHINE SULFATE 2 MG/ML CPJ (NOT FOR IM USE) IV PRN (03:32)
[2021-07-28 04:00] VITALS: BP 137/72
[2021-07-28] MEDS: BLOOD SUGAR DIAGNOSTIC STRIP TEST SCH ×2 (06:24→12:50)
[2021-07-28] MEDS: INSULIN LISPRO 100 UNITS/ML SUBCUT SCH ×2 (06:24→12:58)
[2021-07-28 08:00] VITALS: BP 159/91
[2021-07-28] MEDS: SACUBITRIL/VALSARTAN 49MG/51MG TABLET PO SCH (09:00)
[2021-07-28] MEDS: AMLODIPINE 5MG TABLET PO SCH (09:00)
[2021-07-28] MEDS ORDERED: CALCIUM ACETATE 667MG CAPSULE PO SCH (09:00)
[2021-07-28] MEDS: CARVEDILOL 3.125 MG TABLET PO SCH (09:58)
[2021-07-28] MEDS: RANOLAZINE 500 MG TAB.SR.12H PO SCH (09:58)
[2021-07-28] MEDS: BACITRACIN 15GM TUBE TOP SCH (09:59)
[2021-07-28] MEDS: NICOTINE 21MG PATCH TD SCH (09:59)
[2021-07-28] MEDS: DIPHENHYDRAMINE 50MG/ML VIAL IV PRN (10:03)
[2021-07-28 12:00] VITALS: BP 155/88
[2021-07-28] MEDS ORDERED: NITROGLYCERIN OINT 1GM/INCH UDPKT TD SCH (13:30)
[2021-07-28 16:00] VITALS: BP 151/89
[2021-07-28 17:55] VITALS: BP 124/76
== END 2021-07-28 18:35 | disposition home or self-care (01) | DRG 252 ==
LOC: ER 09:33 → EDBEDREQ 15:57 → EDBEDREQTM 15:57 → ENRESERV 23:17 → 6EST 07-22 00:18 → EDBEDREQTM 07-22 00:25 → EDBEDREQDT 07-22 00:25 → EDBEDREQSVC 07-22 00:25 → EDBEDREQ 07-22 00:25 → 8WST 07-22 04:28
PROVIDERS: ADMIT Internal Medicine; ATTEND Internal Medicine
PROC: 5A1D70Z Performance of Urinary Filtration, Intermittent, Less than 6 Hours Per Day (ICD-10-PCS; 2021-07-24)
PROC: 03WY0JZ Revision of Synthetic Substitute in Upper Artery, Open Approach (ICD-10-PCS; principal; 2021-07-25)
PROC: 05WY0JZ Revision of Synthetic Substitute in Upper Vein, Open Approach (ICD-10-PCS; 2021-07-25)
PROC: 5A1D70Z Performance of Urinary Filtration, Intermittent, Less than 6 Hours Per Day (ICD-10-PCS; 2021-07-27)
PROC: 02HV33Z Insertion of Infusion Device into Superior Vena Cava, Percutaneous Approach (ICD-10-PCS; 2021-07-27)
PROC: B518ZZA Fluoroscopy of Superior Vena Cava, Guidance (ICD-10-PCS; 2021-07-27)
PROC: B548ZZA Ultrasonography of Superior Vena Cava, Guidance (ICD-10-PCS; 2021-07-27)
DX: T82.7XXA Infection and inflammatory reaction due to other cardiac and vascular devices, implants and grafts, initial encounter (principal); N18.6 End stage renal disease; T82.510A Breakdown (mechanical) of surgically created arteriovenous fistula, initial encounter; I13.2 Hypertensive heart and chronic kidney disease with heart failure and with stage 5 chronic kidney disease, or end stage renal disease; D64.9 Anemia, unspecified; E11.22 Type 2 diabetes mellitus with diabetic chronic kidney disease; I25.10 Atherosclerotic heart disease of native coronary artery without angina pectoris; I50.9 Heart failure, unspecified; E78.5 Hyperlipidemia, unspecified; I25.5 Ischemic cardiomyopathy; L29.9 Pruritus, unspecified; G72.9 Myopathy, unspecified; T82.898A Other specified complication of vascular prosthetic devices, implants and grafts, initial encounter; Z20.822 Contact with and (suspected) exposure to COVID-19; Y83.2 Surgical operation with anastomosis, bypass or graft as the cause of abnormal reaction of the patient, or of later complication, without mention of misadventure at the time of the procedure; F14.10 Cocaine abuse, uncomplicated; F17.210 Nicotine dependence, cigarettes, uncomplicated; I25.2 Old myocardial infarction; Z95.1 Presence of aortocoronary bypass graft; Z99.2 Dependence on renal dialysis; Z95.5 Presence of coronary angioplasty implant and graft; Z79.899 Other long term (current) drug therapy; Z88.5 Allergy status to narcotic agent; Z79.82 Long term (current) use of aspirin; Z79.02 Long term (current) use of antithrombotics/antiplatelets; Y92.89 Other specified places as the place of occurrence of the external cause
CPT/HCPCS: 36415; 36558; 71045; 76937; 77001; 80048; 80053; 80061; 80202; 82962; 83036; 83735; 84132; 84484; 84703; 85025; 86705; 86706; 86709; 86803; 87340; 87426; 93005; 93971; 99285; C1750; C1768; C1769; C1887; C1893; J0610; J0696; J1100; J1200; J1644; J1815; J2250; J2270; J2405; J2704; J3010; J3370; J3490; J7040; J7042; J7060

== ENCOUNTER 2023-02-19 08:36 | Emergency (ER) | payer MEDICARE, MEDICAID ==
[~2023-02-19] VITALS: Ht 167.6 cm; Wt 70.0 kg
[~2023-02-19 08:36] MED LIST changes: -GLIP5TAB12 PO; +GLIP5TAB22 PO; +ISOS5TAB4 MT
[2023-02-19 08:38] VITALS: O2SAT 96
[2023-02-19] MEDS ORDERED: DIPHENHYDRAMINE 50MG/ML VIAL IV ONE (12:15)
[2023-02-19 13:00] LABS: BASOPHILS % 0.7 % (0.0-2.0); EOSINOPHILS % 2.1 % (0.0-5.0); HEMATOCRIT. 38.5 % (36.0-48.0); HEMOGLOBIN. 13.3 g/dL (12.0-16.0); LYMPHOCYTES % 25.3 % (20.0-50.0); MEAN CORPUSCULAR HEMOGLOBIN 31.2 pg (28.0-32.0); MEAN CORPUSCULAR HGB CONC 34.4 g/dL (31.0-37.0); MEAN CORPUSCULAR VOLUME 90.8 fL (81.0-99.0); MONOCYTES % 8.1 % (2.0-8.0); NEUTROPHILS % 63.8 % (40.0-76.0); PLATELET 205 x1000/uL (130-400); RED BLOOD CELL COUNT 4.24 mill/uL (4.2-5.4); RED CELL DISTRIBUTION WIDTH 14.1 % (11.6-14.6); WHITE BLOOD COUNT 6.5 x1000/uL (4.5-11.0)
[2023-02-19 13:28] LABS: CHLORIDE 92 mEq/L (98-107); INDEX HEMOLYSI 1 (1-3); INDEX ICTERIC 1 (1-4); INDEX LIPEMIC 1 (1-3); POTASSIUM 3.1 mEq/L (3.5-5.1); SODIUM 133 mEq/L (136-145)
[2023-02-19 13:33] LABS: HCG SCREEN NEGATIVE
[2023-02-19 13:40] LABS: ALANINE AMINOTRANSFERASE 30 IU/L (13-61); ALBUMIN 4.5 g/dL (3.4-5.0); ASPARTATE AMINOTRANSFERASE 26 IU/L (15-37); BILIRUBIN TOTAL 0.9 mg/dL (0.1-1.0); CALCIUM 9.3 mg/dL (8.5-10.1); CARBON DIOXIDE 33 mEq/L (21-32); CREATININE 2.9 mg/dL (0.6-1.3); GLUCOSE 93 mg/dL (70-105); NT PRO B-TYPE NATRIURETIC PEP 1886 pg/mL (5-125); PROTEIN TOTAL 8.6 g/dL (6.0-8.3); TROPONIN I HIGH SENSITIVITY 27 ng/L (<54); UREA NITROGEN BLOOD 12 mg/dL (7-21)
[2023-02-19 14:45] VITALS: BP 124/80; PULSE 91; RESP 15; TEMP 97.8
== END 2023-02-19 15:00 | disposition left against medical advice (07) ==
LOC: ER 08:48 → EDBEDREQTM 12:28 → EDBEDREQ 12:28 → ER 15:00
DX: R07.89 Other chest pain (principal); I50.9 Heart failure, unspecified; Z88.5 Allergy status to narcotic agent; Z79.899 Other long term (current) drug therapy; Z98.890 Other specified postprocedural states; Z79.82 Long term (current) use of aspirin
CPT/HCPCS: 99285; 96374; 71045; 80053; 84703; 83880; 85025; 84484; 36415; 93005; J1200

== ENCOUNTER 2024-05-28 07:47 | Emergency (ER) | payer MEDICARE, MEDICAID ==
[~2024-05-28] VITALS: Ht 172.7 cm; Wt 77.0 kg
[~2024-05-28 07:47] MED LIST changes: +ATOR-388 PO; -ATOR80TA PO
[2024-05-28 07:48] VITALS: O2SAT 100
[2024-05-28 09:23] LABS: CALCIUM 10.2 mg/dL (8.7-10.4)
[2024-05-28 09:27] LABS: CREATININE 2.9 mg/dL (0.6-1.0)
[2024-05-28 10:18] LABS: BASOPHILS % 0.7 % (0.0-2.0); EOSINOPHILS % 1.1 % (0.0-5.0); HEMATOCRIT. 41.2 % (36.0-48.0); HEMOGLOBIN. 14.2 g/dL (12.0-16.0); LYMPHOCYTES % 26.7 % (20.0-50.0); MEAN CORPUSCULAR HEMOGLOBIN 32.1 pg (28.0-32.0); MEAN CORPUSCULAR HGB CONC 34.5 g/dL (31.0-37.0); MEAN CORPUSCULAR VOLUME 93.2 fL (81.0-99.0); MEAN PLATELET VOLUME 9.3 fl (7.4-10.4); NEUTROPHILS % 64.5 % (40.0-76.0); PLATELET 190 x1000/uL (130-400); RED BLOOD CELL COUNT 4.42 mill/uL (4.2-5.4); RED CELL DISTRIBUTION WIDTH 14.2 % (11.6-14.6); WHITE BLOOD COUNT 5.7 x1000/uL (4.5-11.0)
[2024-05-28 11:49] VITALS: BP 120/75; PULSE 82; RESP 16; TEMP 37; O2SAT 100
== END 2024-05-28 11:54 | disposition home or self-care (01) ==
LOC: ER 07:47
DX: R25.1 Tremor, unspecified (principal); I50.9 Heart failure, unspecified; I51.9 Heart disease, unspecified; N28.9 Disorder of kidney and ureter, unspecified; Z79.899 Other long term (current) drug therapy; Z88.5 Allergy status to narcotic agent; Z79.82 Long term (current) use of aspirin
CPT/HCPCS: 36415; 71045; 80048; 85025; 99284